=== PATIENT | female | born 1980 | race Caucasian/White ===

== ENCOUNTER 2017-09-19 22:13 | Emergency (ER) | payer MEDICAID ==
[2017-09-19] MEDS: LORazepam 1 MG Tab PO STA (23:05)
[2017-09-19] MEDS: LORazepam 1 MG Tab ONE (23:10)
--- NOTE | 2017-09-19 23:11 | EDM.PDOC ---
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 She claims that for the past 2 hrs she has been having pelvic cramping and has been having vaginal bleeding every times she stands up. No nausea or vomiting. no fever or chills. Has been frequently urinating. no back pain. No fall or trauma. Pt is following up with [facility] at [facility]. Onset: Today Onset Date: 09/19/17 Onset Time: 20:00 Location: Reports: Abdomen Quality: Reports: Ache Severity: Moderate Improves with: Reports: None Worsens with: Reports: None Associated Symptoms: Denies: Confusion, Chest Pain, Cough, Diaphoresis, Fever/ Chills, Headaches, Nausea/Vomiting, Rash, Seizure, Shortness of Breath, Syncope , Weakness Lower Abdomen Pain Score (Numeric/FACES): 6 - Related Data Allergies Allergy/AdvReac Type Severity Reaction Status Date / Time No Known Allergies Allergy Verified 09/19/17 22:53 Home Meds: Home Meds Pnv No.122/Iron/Folic Acid [ Multi Tablet] 1 each PO DAILY 09/19/17 [ History] Sertraline HCl 100 mg PO QPM 09/19/17 [History] ED ROS GENERAL - Review of Systems Review Of Systems: See Below Constitutional: Denies: Fever, Chills HEENT: Denies: Rhinitis, Throat Pain, Throat Swelling Respiratory: Denies: Shortness of Breath, Wheezing, Cough, Sputum Cardiovascular: Denies: Chest Pain, Lightheadedness GI/Abdominal: Reports: Abdominal Pain. Denies: Nausea, Vomiting : Reports: Frequency, Other (vaginal bleeding). Denies: Discharge, Dysuria, Flank Pain Musculoskeletal: Denies: Joint Pain, Joint Swelling Skin: Denies: Pruritis, Rash Neurological: Denies: Confusion, Dizziness, Headache, Numbness, Syncope, Tingling, Weakness Psychiatric: Reports: Anxiety ED EXAM, GENERAL - Physical Exam Exam: See Below Exam Limited By: No Limitations General Appearance: Alert, WD/WN, No Apparent Distress, Anxious Eye Exam: Bilateral Eye: EOMI, PERRL Ears: Normal External Exam, Normal Canal, Hearing Grossly Normal, Normal TMs Ear Exam: Bilateral Ear: Auricle Normal, Canal Normal, TM normal Nose: Normal Inspection, Normal Mucosa, No Blood Throat/Mouth: Normal Inspection, Normal Lips, Normal Teeth, Normal Gums, Normal Oropharynx, Normal Voice, No Airway Compromise Head: Atraumatic, Normocephalic Neck: Normal Inspection, Supple, Non-Tender, Full Range of Motion Respiratory/Chest: No Respiratory Distress, Lungs Clear, Normal Breath Sounds, No Accessory Muscle Use, Chest Non-Tender Cardiovascular: Normal Peripheral Pulses, Regular Rate, Rhythm, No Edema, No Gallop, No JVD, No Murmur, No Rub GI/Abdominal: Normal Bowel Sounds, Soft, Non-Tender, No Organomegaly, No Distention, No Abnormal Bruit, No Mass (Female) Exam: Other (blood seen in the vaginal vault. cervical is multiparous with blood at the os. exam done with [place]: Allegra Murphy RN). No: Cervix Motion Tenderness, Uterine Tenderness Extremities: Normal Inspection, Normal Range of Motion, Non-Tender, Normal Capillary Refill, No Pedal Edema Course - Vital Signs Text/Narrative:: Pt is 11 wks and appears to have threatened miscarriage. Her CBC is normal. UA is normal other than blood probable contamination from vaginal bleeding. Per [employer] exam show blood in the vaginal vault with cervix open and has blood and some tissue remnants. Quant HCG is 5441. Pt reassured that she is having first trimester miscarriage. most common cause being chromosomal abnormality being the cause 90% of times. Advised rest and hydration. bleeding should stop. advised to take tylenol 500mg every 6 hrs as needed for cramping. Advised to return to hospital for repeat Quant HCG on Thursday, to see the HCG trend. Will get OB ultrasound on thursday for heart tone. Pt understands and agrees with the plan. Pt was sent home with ativan 1mg every 12 hrs as needed for anxiety. Last Recorded V/S: Last Vital Signs Temp 97.8 F 09/19/17 22:50 Pulse 83 09/19/17 22:50 Resp 18 09/19/17 22:50 BP 110/66 09/19/17 22:50 Pulse Ox 99 09/19/17 22:50 - Orders/Labs/Meds Orders: Active Orders 24 hr Category Date Time Status UA W/MICROSCOPIC [URIN] Stat Lab 09/19/17 22:59 Ordered Labs: Laboratory Tests 09/19/17 09/19/17 09/19/17 Range/Units 22:59 23:00 23:00 WBC 11.7 H (4.0-11.0) K/uL RBC 4.06 (3.80-5.80) M/uL Hgb 12.3 (11.5-16.5) g/dL Hct 35.9 L (37.0-47.0) % MCV 88 (76-96) fL MCH 30.3 (27.0-32.0) pg MCHC 34.3 (31.0-35.0) g/dL RDW 12.9 (11.0-16.0) % Plt Count 347 (150-500) K/uL MPV 9.1 (6.0-10.0) fL Neut % (Auto) 64.2 (45.0-70.0) % Lymph % (Auto) 25.6 (20.0-40.0) % [place] % (Auto) 6.9 (3.0-10.0) % Eos % (Auto) 3.1 (1.0-5.0) % Baso % (Auto) 0.2 (0.0-0.5) % Neut # (Auto) 7.48 (2.00-7.50) K/uL Lymph # (Auto) 2.99 (1.50-4.00) K/uL [place] # (Auto) 0.81 H (0.20-0.80) K/uL Eos # (Auto) 0.36 (0.04-0.40) K/uL Baso # (Auto) 0.02 (0.02-0.10) K/uL HCG, Quant 5441 H (0-6) mIU/mL Urine Color Yellow Urine Appearance Cloudy (CLEAR) Urine pH 8.5 H (5.0-8.0) Ur Specific [place] 1.020 (1.003-1.030) Urine Protein Negative (NEGATIVE) mg/dL Urine Glucose (UA) Negative (NEGATIVE) mg/dL Urine Ketones Negative (NEGATIVE) mg/dL Urine Occult Blood Large H (NEGATIVE) Urine Nitrite Negative (NEGATIVE) Urine Bilirubin Negative (NEGATIVE) Urine Urobilinogen 0.2 (0.2-1.0) E.U./dL Ur Leukocyte Esterase Negative (NEGATIVE) Urine RBC 75-100 H /HPF Urine WBC 0-5 H /HPF Ur Squamous Epith Cells Few /HPF Amorphous Sediment Moderate /HPF Urine Bacteria Few /HPF Meds: Medications Discontinued Medications Generic Name Dose Route Start Last Admin Trade Name Freq PRN Reason Stop Dose Admin Lorazepam 1 mg 09/19/17 23:05 Ativan PO 09/19/17 23:06 STAT STA Lorazepam Confirm 09/19/17 23:07 09/19/17 23:10 Ativan Administered 09/19/17 23:08 Not Given Dose 1 mg .ROUTE .STK-MED ONE Departure - Departure Time of Disposition: 23:45 Disposition: Home, Self-Care 01 Condition: Fair Clinical Impression: Threatened - Discharge Information Referrals: PCP,None [Primary Care Provider] - Forms: ED Department Discharge Additional Instructions: Pt reassured that she is having first trimester miscarriage. most common cause being chromosomal abnormality being the cause 90% of times. Advised rest and hydration. bleeding should stop. advised to take tylenol 500mg every 6 hrs as needed for cramping. Advised to return to hospital for repeat Quant HCG on Thursday, to see the HCG trend. Will get OB ultrasound on thursday for heart tone. Pt understands and agrees with the plan. Pt was sent home with ativan 1mg every 12 hrs as needed for anxiety. return to emergency room if she has excessive vaginal bleeding or cramping. - Problem List & Annotations (1) Threatened SNOMED Code(s): 14056676 Code(s): O20.0 - THREATENED Status: Acute Current Visit: Yes - Problem List Review Problem List Initiated/Reviewed/Updated: Yes - My Orders Last 24 Hours: My Active Orders 09/19/17 22:59 UA W/MICROSCOPIC [URIN] Stat - Assessment/Plan Last 24 Hours: My Active Orders 09/19/17 22:59 UA W/MICROSCOPIC [URIN] Stat Assessment:: 1st trimister miscarriage Plan: Pt reassured that she is having first trimester miscarriage. most common cause being chromosomal abnormality being the cause 90% of times. Advised rest and hydration. bleeding should stop. advised to take tylenol 500mg every 6 hrs as needed for cramping. Advised to return to hospital for repeat Quant HCG on Thursday, to see the HCG trend. Will get OB ultrasound on thursday for heart tone. Pt understands and agrees with the plan. Pt was sent home with ativan 1mg every 12 hrs as needed for anxiety.
[2017-09-19] MEDS ORDERED: LORazepam 1 MG Tab ONE (23:55)
[2017-09-20] MEDS: LORazepam 1 MG Tab ONE (00:48)
== END 2017-09-20 00:01 | disposition home or self-care (01) ==
LOC: LB.ED 22:13
DX: O20.0 Threatened abortion (principal); Z3A.11 11 weeks gestation of pregnancy
CPT/HCPCS: 36415; 81001; 84702; 85025; 99284; A9270-GY

== ENCOUNTER 2017-11-28 00:01 | Emergency (ER) | payer MEDICAID ==
--- NOTE | 2017-11-28 05:36 | EDM.PDOC ---
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 She is working all the time and is lifting and moving things a lot. She has had chest pain that is full and nonexertional in nature the last 24 hours before coming to the ED. Her anxiety has her scared and this is making the discomfort worse. No shortness of breath, mild nausea and no radiation of the pain. No palpitations and no fever or chills. 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: Reports: Other Medication(s) (Lorazepam made it better.) - Related Data Allergies Allergy/AdvReac Type Severity Reaction Status Date / Time No Known Allergies Allergy Verified 09/19/17 22:53 Home Meds: Home Meds Pnv No.122/Iron/Folic Acid [ Multi Tablet] 1 each PO DAILY 09/19/17 [ History] Sertraline HCl 100 mg PO QPM 09/19/17 [History] Past Medical History Genitourinary History: Reports: None STRATEGIC INSIGHTS LEAD History: Reports: , Spontaneous , Other (See Below) Other STRATEGIC INSIGHTS LEAD History: Musculoskeletal History: Reports: None Psychiatric History: Reports: Depression, PTSD - Past Surgical History Female Surgical History: Reports: Section, D&C Musculoskeletal Surgical History: Reports: Carpal Tunnel Social & Family History - Family History Family Medical History: Noncontributory ED ROS GENERAL - Review of Systems Review Of Systems: See Below Constitutional: Reports: No Symptoms HEENT: Reports: No Symptoms Respiratory: Reports: No Symptoms Cardiovascular: Reports: Chest Pain Endocrine: Reports: No Symptoms GI/Abdominal: Reports: No Symptoms : Reports: No Symptoms Musculoskeletal: Reports: No Symptoms Skin: Reports: No Symptoms Neurological: Reports: No Symptoms Psychiatric: Reports: No Symptoms Hematologic/Lymphatic: Reports: No Symptoms Immunologic: Reports: No Symptoms ED EXAM, GENERAL - Physical Exam Exam: See Below Exam Limited By: No Limitations General Appearance: Alert, WD/WN, No Apparent Distress Eye Exam: Bilateral Eye: EOMI, Normal Fundi, Normal Inspection Ears: Normal External Exam, Normal Canal, Hearing Grossly Normal, Normal TMs Ear Exam: Left Ear: Tenderness (over left costochondral junction), Bilateral Ear : Auricle Normal, Canal Normal, TM normal Nose: Normal Inspection, Normal Mucosa, No Blood Throat/Mouth: Normal Inspection, Normal Lips, Normal Teeth, Normal Gums, Normal Oropharynx, Normal Voice, No Airway Compromise Head: Atraumatic, Normocephalic Neck: Normal Inspection, Supple, Non-Tender, Full Range of Motion Respiratory/Chest: No Respiratory Distress, Lungs Clear, Normal Breath Sounds, No Accessory Muscle Use, Chest Non-Tender Cardiovascular: Normal Peripheral Pulses, Regular Rate, Rhythm, No Edema, No Gallop, No JVD, No Murmur, No Rub Peripheral Pulses: 4+: Posterior Tibial (L), Posterior Tibial (R), Dorsalis Pedis (L), Dorsalis Pedis (R) GI/Abdominal: Normal Bowel Sounds, Soft, Non-Tender, No Organomegaly, No Distention, No Abnormal Bruit, No Mass Back Exam: Normal Inspection, Full Range of Motion, NT Extremities: Normal Inspection, Normal Range of Motion, Non-Tender, Normal Capillary Refill, No Pedal Edema Neurological: Alert, Oriented, CN II-XII Intact, Normal Cognition, Normal Gait, Normal Reflexes, No Motor/Sensory Deficits Psychiatric: Normal Affect, Normal Mood Skin Exam: Warm, Dry, Intact, Normal Color, No Rash Lymphatic: No Adenopathy EKG INTERPRETATION EKG Date: 11/28/17 Rhythm: NSR Pride: Normal P-Wave: Present QRS: Other (Nonspecific q waves in places, with some tremor in the tracing.) ST-T: Normal QT: Normal Comparison: NA - No Prior EKG (Second EKG unchanged.) Course - Vital Signs Text/Narrative:: Patient had a good ED course. Her pain went away after being in the ED for about 30 minutes, except the pain could be reproduced with palpation of the left costochondral junction. Her EKG's and Troponin's were negative times two. She would like to follow up with the Clinic here in [place] to be set up for a treadmill with a feller hand and to have her Cymbalta and Lorazepam checked and refilled. She will do this early next week. She will take ibuprofen 600 mg every 6 hours as needed for chest pain in ribs. Last Recorded V/S: Last Vital Signs Temp 36.6 C 11/28/17 04:00 Pulse 71 11/28/17 04:00 Resp 18 11/28/17 04:00 BP 101/50 L 11/28/17 04:00 Pulse Ox 98 11/28/17 04:00 - Orders/Labs/Meds Orders: Active Orders 24 hr Category Date Time Status EKG Documentation Completion [RC] ASDIRECTED Care 11/28/17 00:28 Active EKG Documentation Completion [RC] ASDIRECTED Care 11/28/17 02:08 Active CXR [Chest 1V Frontal] [CR] Stat Exams 11/28/17 00:28 Taken Labs: Laboratory Tests 11/28/17 11/28/17 11/28/17 Range/Units 00:30 00:30 00:30 WBC 12.2 H (4.0-11.0) K/uL RBC 4.34 (3.80-5.80) M/uL Hgb 12.9 (11.5-16.5) g/dL Hct 37.8 (37.0-47.0) % MCV 87 (76-96) fL MCH 29.7 (27.0-32.0) pg MCHC 34.1 (31.0-35.0) g/dL RDW 13.0 (11.0-16.0) % Plt Count 372 (150-500) K/uL MPV 9.6 (6.0-10.0) fL Neut % (Auto) 61.5 (45.0-70.0) % Lymph % (Auto) 29.0 (20.0-40.0) % [place] % (Auto) 6.7 (3.0-10.0) % Eos % (Auto) 2.6 (1.0-5.0) % Baso % (Auto) 0.2 (0.0-0.5) % Neut # (Auto) 7.49 (2.00-7.50) K/uL Lymph # (Auto) 3.53 (1.50-4.00) K/uL [place] # (Auto) 0.82 H (0.20-0.80) K/uL Eos # (Auto) 0.32 (0.04-0.40) K/uL Baso # (Auto) 0.02 (0.02-0.10) K/uL D-Dimer, Quantitative 104 (0-400) ng/mL Sodium 136 (136-145) mmol/L Potassium 3.5 (3.5-5.1) mmol/L Chloride 104 (98-107) mmol/L Carbon Dioxide 25.9 (21.0-32.0) mmol/L Anion Gap 9.6 (5.0-15.0) mmol/L BUN 15 (8-26) mg/dL Creatinine 0.99 (0.55-1.02) mg/dL Est Cr Clr Drug Dosing TNP Estimated GFR (MDRD) > 60 (>60) MLS/MIN BUN/Creatinine Ratio 15.2 (6-25) Glucose 100 (74-100) mg/dL Calcium 8.8 (8.5-10.1) mg/dL Total Bilirubin 0.4 (0.0-1.0) mg/dL AST 19 (15-37) U/L ALT 25 (12-78) U/L Alkaline Phosphatase 55 (46-116) U/L Troponin I < 0.017 (0.000-0.060) ng/mL Total Protein 7.7 (6.4-8.2) g/dL Albumin 3.9 (3.4-5.0) g/dL Globulin 3.8 (2.2-4.2) g/dL Albumin/Globulin Ratio 1.0 (0.8-2.0) 11/28/17 Range/Units 04:30 WBC (4.0-11.0) K/uL RBC (3.80-5.80) M/uL Hgb (11.5-16.5) g/dL Hct (37.0-47.0) % MCV (76-96) fL MCH (27.0-32.0) pg MCHC (31.0-35.0) g/dL RDW (11.0-16.0) % Plt Count (150-500) K/uL MPV (6.0-10.0) fL Neut % (Auto) (45.0-70.0) % Lymph % (Auto) (20.0-40.0) % [place] % (Auto) (3.0-10.0) % Eos % (Auto) (1.0-5.0) % Baso % (Auto) (0.0-0.5) % Neut # (Auto) (2.00-7.50) K/uL Lymph # (Auto) (1.50-4.00) K/uL [place] # (Auto) (0.20-0.80) K/uL Eos # (Auto) (0.04-0.40) K/uL Baso # (Auto) (0.02-0.10) K/uL D-Dimer, Quantitative (0-400) ng/mL Sodium (136-145) mmol/L Potassium (3.5-5.1) mmol/L Chloride (98-107) mmol/L Carbon Dioxide (21.0-32.0) mmol/L Anion Gap (5.0-15.0) mmol/L BUN (8-26) mg/dL Creatinine (0.55-1.02) mg/dL Est Cr Clr Drug Dosing Estimated GFR (MDRD) (>60) MLS/MIN BUN/Creatinine Ratio (6-25) Glucose (74-100) mg/dL Calcium (8.5-10.1) mg/dL Total Bilirubin (0.0-1.0) mg/dL AST (15-37) U/L ALT (12-78) U/L Alkaline Phosphatase (46-116) U/L Troponin I < 0.017 (0.000-0.060) ng/mL Total Protein (6.4-8.2) g/dL Albumin (3.4-5.0) g/dL Globulin (2.2-4.2) g/dL Albumin/Globulin Ratio (0.8-2.0) Departure - Departure Time of Disposition: 05:48 Disposition: Home, Self-Care 01 Condition: Good Clinical Impression: Costochondral chest pain, Anxiety about health Referrals: PCP,None [Primary Care Provider] - - My Orders Last 24 Hours: My Active Orders 11/28/17 00:28 EKG Documentation Completion [RC] ASDIRECTED CXR [Chest 1V Frontal] [CR] Stat 11/28/17 02:08 EKG Documentation Completion [RC] ASDIRECTED - Assessment/Plan Last 24 Hours: My Active Orders 11/28/17 00:28 EKG Documentation Completion [RC] ASDIRECTED CXR [Chest 1V Frontal] [CR] Stat 11/28/17 02:08 EKG Documentation Completion [RC] ASDIRECTED
--- NOTE | 2017-11-28 20:02 | CR ---
CLINICAL DATA: Chest Pain. AP PORTABLE CHEST, 28 NOVEMBER 2017: Normal exam. Job: [id number] MTDD
== END 2017-11-28 05:53 | disposition home or self-care (01) ==
LOC: LB.ED 00:01
DX: R07.1 Chest pain on breathing (principal); F41.9 Anxiety disorder, unspecified; Z79.899 Other long term (current) drug therapy
CPT/HCPCS: 36415; 71045; 80053; 84484; 85025; 85379; 93005; 99285-25

== ENCOUNTER 2019-04-08 08:14 | Emergency (ER) | payer MEDICAID ==
[2019-04-08] MEDS ORDERED: Morphine 2 MG/ML Syringe IVPUSH ONE (08:24)
--- NOTE | 2019-04-08 08:30 | EDM.PDOC ---
ED HPI GENERAL MEDICAL PROBLEM - General Chief Complaint: General Stated Complaint: ABD PAIN Time Seen by Provider: 04/08/19 08:20 Source of Information: Reports: Patient History Limitations: Reports: No Limitations - History of Present Illness INITIAL COMMENTS - FREE TEXT/NARRATIVE: This is a 38yo F here for low abdominal to pelvic pain since 7 am. She has not had this pain in the past. It feels like cramps but lower. She denies being or other issues recently. She notes a regular cycle and this would be 3 wks since her LMP and she shouldn't be having a cycle at this time. She has had 2 prior C-sections. No hematuria, no hematochezia. Onset: Sudden Duration: Hour(s):, Getting Worse Location: Reports: Abdomen, Pelvis Middle Pelvic Pain Score (Numeric/FACES): 9 - Related Data Allergies Allergy/AdvReac Type Severity Reaction Status Date / Time No Known Allergies Allergy Verified 09/19/17 22:53 Home Meds: Home Meds No122/Iron/Folic Acid [ Multi Tablet] 1 each PO DAILY 09/19/17 [History] Sertraline HCl 100 mg PO QPM 09/19/17 [History] Past Medical History Genitourinary History: Reports: None [employer] History: Reports: , Spontaneous , Other (See Below) Other [employer] History: Musculoskeletal History: Reports: None Psychiatric History: Reports: Depression, PTSD - Past Surgical History Female Surgical History: Reports: Section, D&C Musculoskeletal Surgical History: Reports: Carpal Tunnel Social & Family History - Family History Family Medical History: Noncontributory ED ROS GENERAL - Review of Systems Review Of Systems: Comprehensive ROS is negative, except as noted in HPI. ED EXAM, GENERAL - Physical Exam Exam: See Below Exam Limited By: No Limitations General Appearance: Alert, WD/WN, Severe Distress Eye Exam: Bilateral Eye: EOMI, PERRL Ears: Normal External Exam Nose: Normal Inspection Throat/Mouth: Normal Inspection Head: Atraumatic, Normocephalic Neck: Normal Inspection Respiratory/Chest: No Respiratory Distress, Lungs Clear, Normal Breath Sounds Cardiovascular: Normal Peripheral Pulses, Regular Rate, Rhythm Peripheral Pulses: 2+: Dorsalis Pedis (L), Dorsalis Pedis (R) GI/Abdominal: Normal Bowel Sounds Back Exam: Normal Inspection Extremities: Normal Inspection, Normal Range of Motion Neurological: Alert, Oriented, CN II-XII Intact Psychiatric: Normal Affect, Normal Mood Skin Exam: Warm, Dry, Intact Course - Vital Signs Last Recorded V/S: Last Vital Signs Temp 36.2 C 04/08/19 10:05 Pulse 65 04/08/19 10:05 Resp 18 04/08/19 10:05 BP 136/93 H 04/08/19 10:05 Pulse Ox 97 04/08/19 10:05 - Orders/Labs/Meds Orders: Active Orders 24 hr Category Date Time Status HCG QUALITATIVE,URINE [URCHEM] Stat Lab 04/08/19 08:27 Ordered UA W/MICROSCOPIC [URIN] Stat Lab 04/08/19 08:28 Results Labs: Laboratory Tests 04/08/19 04/08/19 04/08/19 Range/Units 08:27 08:28 09:00 WBC 12.0 H (4.0-11.0) K/uL RBC 4.14 (3.80-5.80) M/uL Hgb 12.5 (11.5-16.5) g/dL Hct 37.4 (37.0-47.0) % MCV 90 (76-96) fL MCH 30.2 (27.0-32.0) pg MCHC 33.4 (31.0-35.0) g/dL RDW 13.2 (11.0-16.0) % Plt Count 409 (150-500) K/uL MPV 9.1 (6.0-10.0) fL Neut % (Auto) 78.8 H (45.0-70.0) % Lymph % (Auto) 13.7 L (20.0-40.0) % [place] % (Auto) 5.3 (3.0-10.0) % Eos % (Auto) 2.0 (1.0-5.0) % Baso % (Auto) 0.2 (0.0-0.5) % Neut # (Auto) 9.46 H (2.00-7.50) K/uL Lymph # (Auto) 1.64 (1.50-4.00) K/uL [place] # (Auto) 0.64 (0.20-0.80) K/uL Eos # (Auto) 0.24 (0.04-0.40) K/uL Baso # (Auto) 0.02 (0.02-0.10) K/uL Sodium 137 (136-145) mmol/L Potassium 3.9 (3.5-5.1) mmol/L Chloride 102 (98-107) mmol/L Carbon Dioxide 28.5 (21.0-32.0) mmol/L Anion Gap 10.4 (5.0-15.0) mmol/L BUN 11 D (8-26) mg/dL Creatinine 0.89 (0.55-1.02) mg/dL Est Cr Clr Drug Dosing 73.28 mL/min Estimated GFR (MDRD) > 60 (>60) MLS/MIN BUN/Creatinine Ratio 12.4 (6-25) Glucose 132 H D (74-100) mg/dL Calcium 9.0 (8.5-10.1) mg/dL Total Bilirubin 0.6 D (0.0-1.0) mg/dL AST 18 (15-37) U/L ALT 25 (12-78) U/L Alkaline Phosphatase 43 L (46-116) U/L Total Protein 7.2 (6.4-8.2) g/dL Albumin 3.4 (3.4-5.0) g/dL Globulin 3.8 (2.2-4.2) g/dL Albumin/Globulin Ratio 0.9 (0.8-2.0) Lipase 111 (73-393) U/L TSH, Ultra Sensitive 1.143 (0.358-3.740) uIU/mL Urine Color Yellow Urine Appearance Clear (CLEAR) Urine pH 5.5 (5.0-8.0) Ur Specific Sha[place] >= 1.030 (1.003-1.030) Urine Protein 30 H (NEGATIVE) mg/dL Urine Glucose (UA) Negative (NEGATIVE) mg/dL Urine Ketones Trace H (NEGATIVE) mg/dL Urine Occult Blood Large H (NEGATIVE) Urine Nitrite Negative (NEGATIVE) Urine Bilirubin Small H (NEGATIVE) Urine Urobilinogen 0.2 (0.2-1.0) E.U./dL Ur Leukocyte Esterase Negative (NEGATIVE) Meds: Medications Discontinued Medications Generic Name Dose Route Start Last Admin Trade Name Freq PRN Reason Stop Dose Admin Hydromorphone HCl Confirm 04/08/19 09:07 12/20/19 09:13 Dilaudid Administered 04/08/19 09:08 Not Given Dose 2 mg .ROUTE .STK-MED ONE Hydromorphone HCl 1 mg 04/08/19 08:58 04/08/19 08:58 Dilaudid IVPUSH 04/08/19 08:59 1 mg ONETIME ONE Administration Hydromorphone HCl Confirm 04/08/19 09:38 04/08/19 09:50 Dilaudid Administered 04/08/19 09:39 Not Given Dose 2 mg .ROUTE .STK-MED ONE Hydromorphone HCl 2 mg 04/08/19 09:48 04/08/19 09:41 Dilaudid IVPUSH 04/08/19 09:49 2 mg ONETIME ONE Administration Ketorolac Tromethamine Confirm 04/08/19 09:38 04/08/19 09:50 Toradol Administered 04/08/19 09:39 Not Given Dose 30 mg .ROUTE .STK-MED ONE Ketorolac Tromethamine 30 mg 04/08/19 09:48 04/08/19 09:38 Toradol IVPUSH 04/08/19 09:49 30 mg ONETIME ONE Administration Morphine Sulfate 2 mg 04/08/19 08:24 04/08/19 08:32 Morphine IVPUSH 04/08/19 08:25 2 mg ONETIME ONE Administration Morphine Sulfate Confirm 04/08/19 08:33 04/08/19 09:12 Morphine Administered 04/08/19 08:34 Not Given Dose 2 mg .ROUTE .STK-MED ONE Ondansetron HCl Confirm 04/08/19 09:38 04/08/19 09:51 Zofran Administered 04/08/19 09:39 Not Given Dose 4 mg .ROUTE .STK-MED ONE Ondansetron HCl 4 mg 04/08/19 09:48 04/08/19 09:36 Zofran IVPUSH 04/08/19 09:49 4 mg ONETIME ONE Administration Departure - Departure Time of Disposition: 09:45 Disposition: DC/Tfer to Other 70 Condition: Fair Clinical Impression: Renal calculus, left, Hydroureter on left Hydronephrosis Qualifiers: Hydronephrosis type: with ureteral calculous obstruction Qualified Code(s): N13.2 - Hydronephrosis with renal and ureteral calculous obstruction - Discharge Information Instructions: Kidney Stones, [id number] Referrals: PCP,None [Primary Care Provider] - Forms: ED Department Discharge Additional Instructions: Discharge facility and go straight to Urology Clinic in [place]. IV left in place per Dr. Powell's orders. Sepsis Event Note - Focused Exam Vital Signs: Vital Signs Temp Pulse Resp BP Pulse Ox 04/08/19 10:05 36.2 C 65 18 136/93 H 97 04/08/19 08:17 36.2 C 67 20 122/66 99 Date Exam was Performed: 04/08/19 Time Exam was Performed: 10:26 - Problem List & Annotations (1) Hydronephrosis SNOMED Code(s): 55853570 Code(s): N13.30 - UNSPECIFIED HYDRONEPHROSIS Status: Acute Priority: High Current Visit: Yes Qualifiers: Hydronephrosis type: with ureteral calculous obstruction Qualified Code(s) : N13.2 - Hydronephrosis with renal and ureteral calculous obstruction (2) Hydroureter on left SNOMED Code(s): 62171141 Code(s): N13.4 - HYDROURETER Status: Acute Priority: High Current Visit : Yes (3) Renal calculus, left SNOMED Code(s): 02177666 Code(s): N20.0 - CALCULUS OF KIDNEY Status: Acute Priority: High Current Visit: Yes - Problem List Review Problem List Initiated/Reviewed/Updated: Yes - My Orders Last 24 Hours: My Active Orders 04/08/19 08:27 HCG QUALITATIVE,URINE [URCHEM] Stat 04/08/19 08:28 UA W/MICROSCOPIC [URIN] Stat - Assessment/Plan Last 24 Hours: My Active Orders 04/08/19 08:27 HCG QUALITATIVE,URINE [URCHEM] Stat 04/08/19 08:28 UA W/MICROSCOPIC [URIN] Stat Plan: Patient counseled on renal hydronephrosis, hydroureter, and renal stone of the proximal UV junction at 5.5mm. Consulted Urology and patient will be transferred via PV to the Urology clinic for procedure with Dr. Cueto. Patient counseled on discussed pain management for travel and discharge instructions.
[2019-04-08] MEDS ORDERED: Morphine 2 MG/ML Syringe ONE (08:33)
[2019-04-08] MEDS ORDERED: HYDROmorphone 2 MG/ML Syringe IVPUSH ONE (08:58)
[2019-04-08] MEDS ORDERED: HYDROmorphone 2 MG/ML SDV ONE ×2 (09:07→09:38)
--- NOTE | 2019-04-08 09:17 | CT ---
CLINICAL DATA: low abdominal pain DATE OF SERVICE: 04/08/2019 Unenhanced abdomen and pelvic CT: Multislice acquisition through the abdomen and pelvis without IV or oral contrast was performed. No priors. The lung bases are clear. The unenhanced liver appears normal. The gallbladder appears normal. The spleen appears normal. The pancreas appears normal. The right and left adrenals appear normal. No nephrolithiasis. There are subtle hyperdensities in the region of the renal pyramids bilaterally suggesting nephrocalcinosis and medullary sponge kidney. There is a 5.5 mm distal ureteral calculi on the left located just proximal to the ureterovesical junction. There is hydronephrosis and hydroureter proximal to it consistent with obstruction. There is a small amount of fluid within the bladder. It appears normal. There is a 3.7 cm rounded near fluid density lesion in the right ovary consistent the right ovarian cyst. The appendix is not dilated. No evidence of appendicitis. No free air. No free fluid. No dilated loops of bowel. No adenopathy. No aortic aneurysm. Impression: 1) 5.5 mm distal ureteral calculi on the left with obstruction. 2) 3.7 cm near fluid density lesion right ovary consistent with a right ovarian cyst. Followup ultrasound is recommended confirm resolution. Thank you for allowing us to participate in the care of your patient. Dictated and Authenticated by: Seferino Sheehan MD 04/08/2019 8:57 AM Central Time ([place] & [place]) [place]
[2019-04-08] MEDS ORDERED: Ketorolac 30 MG/ML SDV ONE (09:38)
[2019-04-08] MEDS ORDERED: Ondansetron 4 MG/2 ML SDV ONE (09:38)
[2019-04-08] MEDS ORDERED: Ketorolac 60 MG/2 ML SDV IVPUSH ONE (09:48)
[2019-04-08] MEDS ORDERED: HYDROmorphone 2 MG/ML SDV IVPUSH ONE (09:48)
[2019-04-08] MEDS ORDERED: Ondansetron 4 MG/2 ML SDV IVPUSH ONE (09:48)
== END 2019-04-08 10:25 | disposition other institution (70) ==
LOC: LB.ED 08:14
DX: N13.2 Hydronephrosis with renal and ureteral calculous obstruction (principal); F32.9 Major depressive disorder, single episode, unspecified; F90.9 Attention-deficit hyperactivity disorder, unspecified type
CPT/HCPCS: 36415; 74176; 80053; 81001; 81025; 83690; 84443; 85025; 96374; 96375; 96376; 99285-25; J1170; J1885; J2270; J2405

== ENCOUNTER 2019-10-03 00:45 | Emergency (ER) | payer MEDICAID ==
[2019-10-03] MEDS ORDERED: HYDROmorphone 2 MG/ML SDV IVPUSH ONE ×2 (01:20→01:26)
--- NOTE | 2019-10-03 04:37 | ER ---
REASON FOR EMERGENCY ROOM VISIT: Abdominal pain. HISTORY: This 39-year-old woman developed a gradual onset of upper abdominal pain around 9 p.m. this evening following a couple of drinks containing vodka and a salad. She had some minimal nausea, but no vomiting and she has not had any fever or diarrhea. She has no prior history of gastrointestinal disease except for gastritis in the past. She is menstruating now. Immediately after her abdominal pain, she took some Tums and Prilosec, which did not help. She describes the pain is constant in the epigastrium. It does not tend to wax and wane. It is not crampy or colicky in nature. PAST MEDICAL HISTORY: Significant for, 1. Ureterolithiasis in March 2019. 2. History of gastritis. 3. x2. 4. History of depression and PTSD. 5. Spontaneous . 6. Carpal tunnel. MEDICATIONS: Sertraline and oral contraceptives. ALLERGIES: NONE TO MEDICATIONS. REVIEW OF SYSTEMS: Pertinent positives and negatives as listed in the HPI. PHYSICAL EXAMINATION: GENERAL: She is uncomfortable and lying on her side. VITAL SIGNS: She is afebrile. Blood pressure is 92/61, pulse is 75, O2 sats 100%. HEENT: Head is normocephalic. No scleral icterus is noted. Oropharynx is normal. NECK: Supple. No adenopathy. CHEST: Clear to auscultation with good air exchange. No wheezes, rhonchi, or rales. CARDIAC: Regular rate without murmur. ABDOMEN: Obese and it is nondistended. She does have bowel sounds. It is soft to superficial and minimally tender to deep palpation in the epigastrium without guarding, rebound, or percussion tenderness. There is no palpable mass. EXTREMITIES: Normal pulses. No edema. BACK: She has no CVA tenderness. LABORATORY DATA: Her CBC shows that she has an elevated white count at 21,200 with a hemoglobin of 11.7. Her CMP is within normal limits including liver enzymes except that her glucose is 144 (nonfasting). Her UA does show 5-10 rbc's per high-powered field, but she is menstruating and this was not a cath urine. It is negative for nitrites, wbc's, bacteria, or leukocyte esterase. Flat and upright films of her abdomen does not show any free air. She has scattered bowel gas noted, but there are couple of small loops of small bowel in the right upper quadrant area with 2 small air-fluid levels. EMERGENCY ROOM COURSE: In addition to having the x-rays and labs drawn, we did give her 1 dose of Dilaudid IM when she arrived following my physical exam. She got remarkable relief with this and felt 100% better. I did reexamine her 2 hours after that dose and she remained comfortable with no evidence of tenderness on physical exam. She felt much better. IMPRESSION: Epigastric pain, uncertain etiology. Possibilities still include cholelithiasis or possibly gastroenteritis, although she has not vomited or had any diarrhea. It could nonetheless be in the early stages. Peptic ulcer disease is a consideration. She had a normal amylase, which goes against pancreatitis. I see nothing on her exam or lab or her history that suggests recurrent nephrolithiasis. PLAN: I discussed the above findings with her and reviewed the possibilities. This may all pass and we may never know what it is. At this point in time since she remains comfortable and has no fever and the only finding being the elevated WBC, I think it is sensible for her to go home and stay on sips of clear liquids and return for recheck in the clinic in the morning unless of course she feels perfectly fine, then that can wait. A decision as to whether or not we need to move ahead with an ultrasound or possibly even a CT scan will be made at that time. She does not have anything suggestive of a surgical abdomen at this point in time, and I feel comfortable with this as she seems to be quite reliable. The option of admitting her to the hospital on observing overnight was discussed and she agreed that it made perfect sense to let her go home and return for a recheck in the clinic. All questions were answered. She understands and agrees. LORNE/SANTIAGO /[id number]
--- NOTE | 2019-10-03 09:00 | CR ---
DATE OF SERVICE: 10/03/19 CLINICAL DATA: abdominal pain SUPINE AND UPRIGHT ABDOMEN: There are multiple gas-filled loops of small bowel in the right abdomen that contain air-fluid levels on the upright film. They are not distended. A localized ileus should be considered. Enteritis should also be considered. There is a moderate amount of stool noted in the right colon. No free air. No dilated loops of bowel. [id number] [facility]
== END 2019-10-03 03:35 | disposition home or self-care (01) ==
LOC: LB.ED 00:45
DX: R10.13 Epigastric pain (principal)
CPT/HCPCS: 36415; 74019; 80053; 81001; 82150; 85025; 96374; 99284; J1170

== ENCOUNTER 2020-02-11 15:32 | Emergency (ER) | payer OTHER | END 2020-02-11 17:00 | disposition home or self-care (01) | LOC: LB.ED 15:32 | DX: Z53.21 Procedure and treatment not carried out due to patient leaving prior to being seen by health care provider (principal); U07.1 COVID-19 | CPT/HCPCS: U0002 ==

== ENCOUNTER 2021-09-02 07:35 | Emergency (ER) | payer BC ==
[2021-09-02] MEDS: methylPREDNISolone Sodium Succinate 125 MG/2 ML SDV ONE (08:01)
[2021-09-02 08:15] VITALS: BP 131/85; PULSE 96
== END 2021-09-02 08:10 | disposition home or self-care (01) ==
LOC: LB.ED 07:35
DX: L50.9 Urticaria, unspecified (principal); Z79.899 Other long term (current) drug therapy
CPT/HCPCS: 96372; 99282; J2930; 99281

== ENCOUNTER 2023-04-11 08:40 | Emergency (ER) | payer BC ==
[2023-04-11 07:29] LABS: APPEARANCE,URINE CLEAR (CLEAR); BILIRUBIN,URINE SMALL (NEGATIVE); COLOR,URINE YELLOW; GLUCOSE,URINE NEGATIVE (NEGATIVE); KETONES,URINE NEGATIVE (NEGATIVE); LEUKOCYTE ESTERASE,URINE NEGATIVE (NEGATIVE); NITRITE,URINE NEGATIVE (NEGATIVE); OCCULT BLOOD,URINE SMALL (NEGATIVE); PH,URINE 5.5 (5.0-8.0); PROTEIN,URINE TRACE mg/dL (NEGATIVE); UROBILINOGEN,URINE 0.2 E.U./dL (0.2-1.0)
[2023-04-11 07:32] LABS: SQUAMOUS EPITHELIAL CELLS,UR MANY /HPF; WBC,URINE 0-5 /HPF
[2023-04-11 07:33] LABS: AMORPHOUS SEDIMENT,URINE FEW /HPF; MUCUS,URINE MANY /HPF
== END 2023-04-11 08:45 | disposition home or self-care (01) ==
LOC: LB.ED 08:40
DX: R10.2 Pelvic and perineal pain (principal); R31.9 Hematuria, unspecified
CPT/HCPCS: 74176; 81001; 99283; 99284

== ENCOUNTER 2023-08-04 22:00 | Emergency (ER) | payer BC ==
[2023-08-04 22:44] LABS: HEMATOCRIT 34.8 % (37.0-47.0); HEMOGLOBIN 11.7 g/dL (11.5-16.5); MEAN CORPUSCULAR HEMOGLOBIN 29.8 pg (27.0-32.0); MEAN CORPUSCULAR HGB CONC 33.6 g/dL (31.0-35.0); MEAN PLATELET VOLUME 9.2 fL (6.0-10.0); RED BLOOD CELL COUNT 3.93 M/uL (3.80-5.80); RED CELL DISTRIBUTION WIDTH 14.1 % (11.0-16.0); WHITE BLOOD CELL COUNT,WBC 13.4 K/uL (4.0-11.0)
[2023-08-04 23:00] LABS: ALBUMIN 3.3 g/dL (3.4-5.0); ANION GAP 10.1 mmol/L (5.0-15.0); BILIRUBIN TOTAL 0.3 mg/dL (0.0-1.0); BUN/CREATININE RATIO 19.5 (6-25); CALCIUM 8.5 mg/dL (8.5-10.1); CREATININE 0.77 mg/dL (0.55-1.02); EST CRCL DRUG DOSING (CG) 77.93 mL/min; POTASSIUM,K 4.1 mmol/L (3.5-5.1); PROTEIN TOTAL,TP 6.7 g/dL (6.4-8.2)
== END 2023-08-04 23:21 | disposition home or self-care (01) ==
LOC: LB.ED 22:00
DX: F41.0 Panic disorder [episodic paroxysmal anxiety] (principal); E66.9 Obesity, unspecified; F17.210 Nicotine dependence, cigarettes, uncomplicated; D72.829 Elevated white blood cell count, unspecified; Z79.899 Other long term (current) drug therapy; Z86.19 Personal history of other infectious and parasitic diseases; Z68.31 Body mass index [BMI] 31.0-31.9, adult
CPT/HCPCS: 36415; 80053; 85027; 93005; 99283; 99284

== ENCOUNTER 2025-02-25 18:13 | Emergency (ER) | payer BC ==
[2025-02-25] MEDS: Ondansetron 4 MG/2 ML SDV IVPUSH ONE (18:50)
== END 2025-02-25 19:55 | disposition home or self-care (01) ==
LOC: LB.ED 18:13
DX: F10.120 Alcohol abuse with intoxication, uncomplicated (principal); Z79.899 Other long term (current) drug therapy; Y90.9 Presence of alcohol in blood, level not specified
CPT/HCPCS: 96361; 96374; 99283; J2405; J7030